=== PATIENT | male | born 1990 | race African-American/Black ===

== ENCOUNTER 2024-10-17 15:03 | Emergency (ER) | payer OTHER, SELFPAY ==
[2024-10-17 15:07] VITALS: BP 125/84; PULSE 92; TEMP 37; O2SAT 97; BMI 29.6
[2024-10-17 15:19] VITALS: O2SAT 98
--- NOTE | 2024-10-17 15:30 | ED.SKABFB1 ---
HPI - Skin/Abscess/Foreign Bdy General Chief complaint: Skin/Abscess/Foreign Body Stated complaint: RASH Time Seen by Provider: 10/17/24 15:12 Source: patient Mode of arrival: walk-in Limitations: no limitations History of Present Illness HPI narrative: This patient is here for evaluation of a tender spot on his right upper lip. Essentially he is paranoid and can turn about how possibly having herpes. He said that several months ago he was with a woman who indicated that she had herpes. However he was not clear if she had genital or oral herpes. He was involved in a lot of sexual foreplay with that woman but has not had any sores until last night. Last night he was with a different person and they were kissing and he noticed a sore spot on the outer aspect of his upper lip. He has no lesions in the genital area he has no urethral drainage or discharge he has no sores inside the mouth and oral cavity at all. There is no other complaints. He is from the [facility]. Has no other symptoms today. He says he may have had herpes many many years ago but he cannot even remember if it was type I or type II. Related Data Home Medications ?Medication ?Instructions ?Recorded ?Confirmed No Known Home Medications 10/17/24 10/17/24 Allergies Allergy/AdvReac Type Severity Reaction Status Date / Time No Known Drug Allergies Allergy Verified 10/17/24 15:12 [facility] Medical History (Updated 10/17/24 @ 15:35 by Mekhi Mendoza MD) No pertinent past medical history ?Z78.9 - Other specified health status (ICD-10) Surgical History (Updated 10/17/24 @ 15:17 by Daniel Childs) No pertinent past surgical history ?Z78.9 - Other specified health status (ICD-10) Social History Little interest or pleasure in doing things: not at all Feeling down, depressed, or hopeless: not at all Exam Narrative Exam Narrative: Well-hydrated well-nourished pleasant male vital signs are stable. HEENT problem focused examination shows his hypopharynx gingival area tongue mucosal surfaces are to be completely normal with no vesicles or ulcerations. The area that he has is on the upper right lip near the vermilion border is approximately 3 mm its flat it is nonraised it is nontender there is no vesicles. The upper and lower lip were everted there is no other lesions noted. Rest of the skin integument of his facial area is normal. His voice is normal there is no sinus drainage or discharge. Constitutional Vital Signs, click to edit/add: Last Vital Signs Temp 98.6 F 10/17/24 15:07 Pulse 92 H 10/17/24 15:07 Resp 16 10/17/24 15:07 BP 125/84 10/17/24 15:07 Pulse Ox 98 10/17/24 15:19 O2 Del Method Room Air 10/17/24 15:19 Course Vital Signs Vital signs: Vital Signs Temperature 98.6 F 10/17/24 15:07 Pulse Rate 92 H 10/17/24 15:07 Respiratory Rate 16 10/17/24 15:07 Blood Pressure 125/84 10/17/24 15:07 Pulse Oximetry 97 10/17/24 15:07 Oxygen Delivery Method Room Air 10/17/24 15:07 Temperature 98.6 F 10/17/24 15:07 Pulse Rate 92 H 10/17/24 15:07 Respiratory Rate 16 10/17/24 15:07 Blood Pressure 125/84 10/17/24 15:07 Pulse Oximetry 98 10/17/24 15:19 Oxygen Delivery Method Room Air 10/17/24 15:19 MDM - Skin/Abscess/Foreign Bdy MDM Narrative Medical decision making narrative: This patient has a nonraised nontender isolated lesion on his right upper lip that does not resemble any type of herpes or viral infection. It does not look cancerous however he was advised to follow-up with ENT should it not resolve on its own in 5 to 7 days. He just noticed it last night Discharge Plan Discharge Chief Complaint: Skin/Abscess/Foreign Body Clinical Impression: Inclusion cyst Patient Disposition: Home, Self-Care Time of Disposition Decision: 15:34 Prescriptions / Home Meds: No Action No Known Home Medications Print Language: Luxem[place] Additional Instructions: Follow-up with ENT if this does not clear up in 10 to 14 days . return if you get multiple lesions that are tender inside the mouth Referrals: Physician,Non-Staff, MD [Primary Care Provider] - 1 week
== END 2024-10-17 15:39 | disposition home or self-care (01) ==
PROVIDERS: Emergency Provider Emergency Medicine Emergency Medical Services
DX: L72.0 Epidermal cyst (principal)
CPT/HCPCS: 99281